=== PATIENT | male | born 1995 | race Caucasian/White ===

== ENCOUNTER 2022-05-03 18:17 | Outpatient (REF) | payer MEDICAID, SELFPAY ==
[2022-05-03 21:44] LABS: Hemoglobin A1C 5.8 % (<5.7)
[2022-05-03 21:52] LABS: ALT 52 U/L (16-63); AST 27 U/L (15-37); Albumin 4.6 g/dL (3.4-5.0); Alkaline Phosphatase 90 U/L (46-116); Anion Gap 12.5 mmol/L (3-11); BUN 8 mg/dL (7-18); Bilirubin, Total 0.6 mg/dL (0.2-1.0); CO2 28.5 mmol/L (21.0-32.0); CREATININE 1.2 mg/dL (0.70-1.30); Calcium 9.1 mg/dL (8.5-10.1); Calculated LDL 110 mg/dL (<100); Chloride 102 mmol/L (98-107); Cholesterol 190 mg/dL (<200); Glucose 114 mg/dL (74-106); HDL Cholesterol 31 mg/dL (40-60); Potassium 3.6 mmol/L (3.5-5.1); Sodium 143 mmol/L (136-145); Total Protein 8.1 g/dL (6.4-8.2); Triglyceride 247 mg/dL (<150)
== END 2022-05-03 18:18 | disposition home or self-care (01) ==
LOC: NCHCN 18:17
PROVIDERS: PCP Family Medicine; Visit Provider Family Medicine
DX: Z13.1 Encounter for screening for diabetes mellitus; Z13.228 Encounter for screening for other metabolic disorders; Z13.220 Encounter for screening for lipoid disorders
CPT/HCPCS: 80053; 80061; 86803; 87389; 83036

== ENCOUNTER 2024-11-04 19:49 | Outpatient (REF) | payer MEDICAID, SELFPAY ==
[2024-11-04 21:35] LABS: Abs Immature Grans 0.01 10^3/uL (0.0-0.06); Absolute Basophil Count 0.03 10^3/uL (0.0-0.2); Absolute Eosinophil Count 0.06 10^3/uL (0.0-0.7); Absolute Lymphocyte Count 2.99 10^3/uL (1.2-3.4); Absolute Neutrophil Count 3.26 10^3/uL (1.2-6.7); Basophils % 0.4 %; Eosinophils % 0.9 %; HCT 44.9 % (40.0-50.0); HGB 15.7 g/dL (13.5-17.5); Immature Grans % 0.1 %; MCH 31.7 pg (27.0-33.0); MCV 91 fL (80-95); MPV 11.5 fL (8.0-11.0); Monocytes % 8.6 %; Platelet Count 232 10^3/uL (130-400); RBC 4.95 10^6/uL (4.36-5.78); RDW 12.5 % (11.8-14.1); RDW-SD 40.7 fL; WBC 6.95 10^3/uL (4.4-10.8)
[2024-11-04 21:41] LABS: ESR 5 mm/hr (0-15)
[2024-11-04 21:51] LABS: ALT 54 U/L (16-63); AST 24 U/L (15-37); Albumin 4.3 g/dL (3.4-5.0); Alkaline Phosphatase 84 U/L (46-116); BUN 15 mg/dL (7-18); Bilirubin, Total 0.43 mg/dL (0.2-1.0); CREATININE 1.3 mg/dL (0.70-1.30); Calcium 9.4 mg/dL (8.5-10.1); Calculated LDL 126 mg/dL (<100); Chloride 104 mmol/L (98-107); Cholesterol 216 mg/dL (<200); Estimated GFR 76.26 (mL/min/1.73m2); Glucose 108 mg/dL (74-106); HDL Cholesterol 37 mg/dL (40-60); Potassium 4.2 mmol/L (3.5-5.1); Sodium 140 mmol/L (136-145); Total Protein 8.1 g/dL (6.4-8.2); Triglyceride 267 mg/dL (<150)
[2024-11-06 11:14] LABS: IgA 251 mg/dL (85-499); Interpretation (See Note); Tissue Transglutaminase IgA <4.0 CU (<20.0)
== END 2024-11-04 19:50 | disposition home or self-care (01) ==
LOC: NCHCN 19:49
PROVIDERS: PCP Family Medicine; Visit Provider Family Medicine
DX: R10.9 Unspecified abdominal pain (principal); Z13.220 Encounter for screening for lipoid disorders; E66.9 Obesity, unspecified
CPT/HCPCS: 80053; 80061; 82784; 83516; 85652; 85025

== ENCOUNTER 2025-06-10 19:58 | Outpatient (REF) | payer MEDICAID, SELFPAY ==
[2025-06-10 21:22] LABS: TSH (W/Ref FT4) 1.98 uIU/mL (0.36-3.74)
[2025-06-12 09:30] LABS: Lyme Ab w Rflx to Lyme Confirm Negative (Negative)
== END 2025-06-10 19:59 | disposition home or self-care (01) ==
LOC: NCHCN 19:58
PROVIDERS: PCP Family Medicine; Visit Provider Family Medicine
DX: R53.83 Other fatigue (principal)
CPT/HCPCS: 84443; 86618